=== PATIENT | male | born 1950 | race Caucasian/White ===

== ENCOUNTER 2023-07-07 10:24 | Inpatient (IN) | payer OTHER ==
[2023-07-07 11:40] LABS: #Eosinphils 0.4 thou/uL (0.0-0.7); #Monocytes 0.8 thou/uL (0.11-0.59); #Neutrophils 6.9 thou/uL (1.40-6.50); %Basophils 0.5 % (0.0-1.0); %Eosinophils 4.3 % (0.0-10.0); %Lymphocytes 3.3 % (21.0-51.0); %Monocytes 9.4 % (0.0-10.0); %Neutrophils 81.5 % (42.0-75.0); Hematocrit 42.2 % (42.0-52.0); Mean Corpuscular HGB CONC 33.2 g/dL (32.0-36.0); Mean Corpuscular Hemoglobin 33.1 pg (27.0-31.0); Mean Corpuscular Volume 99.8 fl (78.0-98.0); Mean Platelet Volume 11.6 fL (7.4-10.4); RBC Distribution Width 13.3 % (11.5-14.5); Red Blood Cell (RBC) Count 4.23 mill/uL (4.70-6.10); White Blood Cell (WBC) Count 8.4 10x3/uL (4.8-10.8)
[2023-07-07 11:41] LABS: Platelet Count 79 10x3/uL (130-400)
[2023-07-07 12:08] LABS: ALT (SGPT) 23 U/L (8-55); AST (SGOT) 23 U/L (5-34); Albumin 4.1 g/dL (3.4-4.8); Alkaline Phosphatase 107 U/L (40-110); Anion Gap 11 mmol/L (10-20); BUN (Urea Nitrogen) 20 mg/dL (8.4-25.7); Bilirubin, Total 0.5 mg/dL (0.2-1.2); Calc. Creatinine Clearance 0 mL/min (70-130); Carbon Dioxide 25 mmol/L (23-31); Chloride 106 mmol/L (98-107); Estimated GFR 68; Globulin 2.3 g/dL (2.4-3.5); Glucose 108 mg/dL (83-110); Lipase 23 U/L (8-78); Potassium 4.4 mmol/L (3.5-5.1); Protein, Total 6.4 g/dL (5.8-8.1); Sodium 138 mmol/L (136-145)
[2023-07-07 12:12] LABS: Troponin I 0.503 ng/mL (< 0.028)
[2023-07-07] MEDS ORDERED: Ketorolac Tromethamine 30 MG/ML VIAL ONE (12:18)
[2023-07-07] MEDS ORDERED: Aspirin Chewable 81 MG TAB ONE (12:18)
[2023-07-07] MEDS ORDERED: Ondansetron ODT 4 MG TAB PO PRN (14:18)
[2023-07-07] MEDS ORDERED: Acetaminophen 650 MG Suppository PR PRN (14:18)
[2023-07-07] MEDS ORDERED: Ondansetron PF 4 MG/2 ML Vial IVP PRN (14:18)
[2023-07-07] MEDS ORDERED: Communication Order-Pharmacy FS PRN (14:29)
[2023-07-07 14:45] VITALS: BMI 28.8
[2023-07-07 14:51] LABS: Hematocrit 39.4 % (42.0-52.0)
[2023-07-07 14:54] LABS: Platelet Count 75 10x3/uL (130-400)
[2023-07-07 15:08] LABS: Troponin I 0.522 ng/mL (< 0.028)
[2023-07-07 18:34] LABS: Critical Call Chem Troponin I RESULT DECREASING; Troponin I 0.407 ng/mL (< 0.028)
[2023-07-07] MEDS ORDERED: Lidocaine 4% Patch TD SCH (23:59)
[2023-07-08] MEDS ORDERED: Lidocaine 4% Patch TD SCH (01:30)
[2023-07-08 04:18] LABS: #Eosinphils 0.5 thou/uL (0.0-0.7); #Monocytes 0.7 thou/uL (0.11-0.59); #Neutrophils 5.2 thou/uL (1.40-6.50); %Basophils 0.6 % (0.0-1.0); %Eosinophils 7.4 % (0.0-10.0); %Lymphocytes 4.3 % (21.0-51.0); %Monocytes 10.5 % (0.0-10.0); %Neutrophils 76.5 % (42.0-75.0); Hematocrit 37.7 % (42.0-52.0); Hemoglobin 12.6 g/dL (14.0-18.0); Mean Corpuscular HGB CONC 33.4 g/dL (32.0-36.0); Mean Corpuscular Hemoglobin 33.4 pg (27.0-31.0); Mean Platelet Volume 10.9 fL (7.4-10.4); RBC Distribution Width 13.2 % (11.5-14.5); Red Blood Cell (RBC) Count 3.77 mill/uL (4.70-6.10); White Blood Cell (WBC) Count 6.7 10x3/uL (4.8-10.8)
[2023-07-08 04:28] LABS: Platelet Count 84 10x3/uL (130-400)
[2023-07-08 04:40] LABS: Anion Gap 15 mmol/L (10-20); BUN (Urea Nitrogen) 21 mg/dL (8.4-25.7); Calc. Creatinine Clearance 91 mL/min (70-130); Calcium 8.1 mg/dL (7.8-10.44); Carbon Dioxide 22 mmol/L (23-31); Chloride 108 mmol/L (98-107); Estimated GFR 77; Glucose 95 mg/dL (83-110); Potassium 4.7 mmol/L (3.5-5.1); Sodium 140 mmol/L (136-145)
[2023-07-08] MEDS ORDERED: OSIMERTINIB MESYLATE 80 MG PO SCH (09:00)
[2023-07-08] MEDS ORDERED: Transdermal Patch Removal TOP SCH ×2 (12:00→13:30)
[2023-07-09] MEDS: Acetaminophen 325 MG TAB PO PRN ×2 (03:33→16:10)
[2023-07-09 04:27] LABS: #Eosinphils 0.5 thou/uL (0.0-0.7); #Monocytes 0.7 thou/uL (0.11-0.59); #Neutrophils 5.1 thou/uL (1.40-6.50); %Basophils 0.5 % (0.0-1.0); %Eosinophils 6.8 % (0.0-10.0); %Lymphocytes 3.9 % (21.0-51.0); %Monocytes 10.4 % (0.0-10.0); %Neutrophils 77.5 % (42.0-75.0); Hematocrit 38.3 % (42.0-52.0); Hemoglobin 12.8 g/dL (14.0-18.0); Mean Corpuscular HGB CONC 33.4 g/dL (32.0-36.0); Mean Corpuscular Hemoglobin 33.1 pg (27.0-31.0); Mean Platelet Volume 11.2 fL (7.4-10.4); Platelet Count 99 10x3/uL (130-400); RBC Distribution Width 12.9 % (11.5-14.5); Red Blood Cell (RBC) Count 3.87 mill/uL (4.70-6.10); White Blood Cell (WBC) Count 6.6 10x3/uL (4.8-10.8)
[2023-07-09 04:54] LABS: Anion Gap 13 mmol/L (10-20); BUN (Urea Nitrogen) 16 mg/dL (8.4-25.7); Calc. Creatinine Clearance 102 mL/min (70-130); Calcium 8.5 mg/dL (7.8-10.44); Carbon Dioxide 23 mmol/L (23-31); Chloride 105 mmol/L (98-107); Estimated GFR 88; Glucose 90 mg/dL (83-110); Sodium 137 mmol/L (136-145)
[2023-07-10 04:26] LABS: #Eosinphils 0.4 thou/uL (0.0-0.7); #Monocytes 0.8 thou/uL (0.11-0.59); #Neutrophils 5.6 thou/uL (1.40-6.50); %Basophils 0.6 % (0.0-1.0); %Eosinophils 6.1 % (0.0-10.0); %Lymphocytes 3.4 % (21.0-51.0); %Monocytes 11.3 % (0.0-10.0); %Neutrophils 77.4 % (42.0-75.0); Hematocrit 38.4 % (42.0-52.0); Hemoglobin 12.9 g/dL (14.0-18.0); Mean Corpuscular HGB CONC 33.6 g/dL (32.0-36.0); Mean Corpuscular Hemoglobin 33.2 pg (27.0-31.0); Mean Corpuscular Volume 98.7 fl (78.0-98.0); Mean Platelet Volume 10.9 fL (7.4-10.4); Platelet Count 113 10x3/uL (130-400); RBC Distribution Width 13.1 % (11.5-14.5); Red Blood Cell (RBC) Count 3.89 mill/uL (4.70-6.10); White Blood Cell (WBC) Count 7.3 10x3/uL (4.8-10.8)
[2023-07-10 04:50] LABS: Anion Gap 14 mmol/L (10-20); BUN (Urea Nitrogen) 18 mg/dL (8.4-25.7); Calc. Creatinine Clearance 94 mL/min (70-130); Calcium 8.4 mg/dL (7.8-10.44); Carbon Dioxide 23 mmol/L (23-31); Chloride 104 mmol/L (98-107); Estimated GFR 81; Glucose 100 mg/dL (83-110); Potassium 4.3 mmol/L (3.5-5.1); Sodium 137 mmol/L (136-145)
[2023-07-10] MEDS ORDERED: Bisacodyl 10 MG SUPP PR PRN (13:44)
[2023-07-10] MEDS ORDERED: Docusate 100 MG CAP PO SCH (14:00)
[2023-07-10] MEDS ORDERED: Polyethylene Glycol 3350 17 GM Packet PO SCH (14:00)
[2023-07-10] MEDS: Docusate 100 MG CAP PO SCH (21:22)
[2023-07-11 04:39] LABS: #Eosinphils 0.4 thou/uL (0.0-0.7); #Monocytes 0.8 thou/uL (0.11-0.59); %Basophils 0.4 % (0.0-1.0); %Eosinophils 5.5 % (0.0-10.0); %Lymphocytes 3.3 % (21.0-51.0); %Monocytes 10.4 % (0.0-10.0); %Neutrophils 79.1 % (42.0-75.0); Hematocrit 40.1 % (42.0-52.0); Hemoglobin 13.4 g/dL (14.0-18.0); Mean Corpuscular HGB CONC 33.4 g/dL (32.0-36.0); Mean Corpuscular Hemoglobin 32.8 pg (27.0-31.0); Mean Platelet Volume 10.9 fL (7.4-10.4); Platelet Count 120 10x3/uL (130-400); Red Blood Cell (RBC) Count 4.09 mill/uL (4.70-6.10); White Blood Cell (WBC) Count 7.6 10x3/uL (4.8-10.8)
[2023-07-11 05:15] LABS: Anion Gap 14 mmol/L (10-20); BUN (Urea Nitrogen) 16 mg/dL (8.4-25.7); Calc. Creatinine Clearance 93 mL/min (70-130); Calcium 8.6 mg/dL (7.8-10.44); Carbon Dioxide 24 mmol/L (23-31); Chloride 104 mmol/L (98-107); Estimated GFR 79; Glucose 99 mg/dL (83-110); Potassium 4.5 mmol/L (3.5-5.1); Sodium 137 mmol/L (136-145)
[2023-07-11 07:43] VITALS: BP 135/65; TEMP 98
[2023-07-11] MEDS ORDERED: Polyethylene Glycol 3350 17 GM Packet PO SCH (09:00)
[2023-07-11] MEDS: Docusate 100 MG CAP PO SCH (10:03)
== END 2023-07-11 12:28 | disposition home or self-care (01) | DRG 175 ==
LOC: ERS 10:24 → ERHOLD 13:58 → 2NO 19:35
PROVIDERS: ADMIT Hospitalist; ATTEND Internal Medicine
DX: I26.99 Other pulmonary embolism without acute cor pulmonale (principal); I21.A1 Myocardial infarction type 2; C34.92 Malignant neoplasm of unspecified part of left bronchus or lung; J91.0 Malignant pleural effusion; Z98.890 Other specified postprocedural states; Z79.01 Long term (current) use of anticoagulants; Z79.899 Other long term (current) drug therapy; D69.6 Thrombocytopenia, unspecified; K59.00 Constipation, unspecified
CPT/HCPCS: 36415; 36416; 71275; 74177; 80048; 80053; 83690; 83880; 84484; 85025; 93005; 93306; 93970; J1642; J1650; J1885

== ENCOUNTER 2023-07-16 09:15 | Inpatient (IN) | payer OTHER ==
[2023-07-16 10:00] LABS: #Basophils 0.1 thou/uL (0.0-0.2); #Eosinphils 0.7 thou/uL (0.0-0.7); #Monocytes 0.8 thou/uL (0.11-0.59); #Neutrophils 6.9 thou/uL (1.40-6.50); %Basophils 0.8 % (0.0-1.0); %Eosinophils 7.4 % (0.0-10.0); %Monocytes 8.8 % (0.0-10.0); %Neutrophils 78.4 % (42.0-75.0); Hematocrit 39.8 % (42.0-52.0); Hemoglobin 13.2 g/dL (14.0-18.0); Mean Corpuscular HGB CONC 33.2 g/dL (32.0-36.0); Mean Corpuscular Volume 99.5 fl (78.0-98.0); Mean Platelet Volume 10.9 fL (7.4-10.4); Platelet Count 153 10x3/uL (130-400); RBC Distribution Width 12.9 % (11.5-14.5); White Blood Cell (WBC) Count 8.7 10x3/uL (4.8-10.8)
[2023-07-16] MEDS ORDERED: Ondansetron PF 4 MG/2 ML Vial ONE (10:24)
[2023-07-16] MEDS ORDERED: Morphine 4 MG/ML VIAL ONE (10:24)
[2023-07-16 10:34] LABS: ALT (SGPT) 108 U/L (8-55); AST (SGOT) 61 U/L (5-34); Albumin 3.5 g/dL (3.4-4.8); Alkaline Phosphatase 112 U/L (40-110); Anion Gap 16 mmol/L (10-20); BUN (Urea Nitrogen) 19 mg/dL (8.4-25.7); Bilirubin, Total 0.6 mg/dL (0.2-1.2); Calc. Creatinine Clearance 0 mL/min (70-130); Calcium 8.8 mg/dL (7.8-10.44); Carbon Dioxide 24 mmol/L (23-31); Chloride 100 mmol/L (98-107); Estimated GFR 73; Globulin 2.7 g/dL (2.4-3.5); Glucose 110 mg/dL (83-110); Lipase 41 U/L (8-78); Potassium 4.1 mmol/L (3.5-5.1); Protein, Total 6.2 g/dL (5.8-8.1); Sodium 136 mmol/L (136-145)
[2023-07-16 10:48] LABS: Troponin I 0.013 ng/mL (< 0.028)
[2023-07-16] MEDS ORDERED: Iopamidol-370 76% 500 ML MDV (1 ML CHARGE) ONE (11:07)
[2023-07-16 14:41] LABS: Bacteria/HPF None Seen HPF (None Seen); Bilirubin Negative (Negative); Blood, Urine Negative (Negative); CAUTI Indications for Culture Pelvic or flank pain; Clarity Clear (Clear); Glucose, Urine (Dipstick) Normal (Negative); Ketone, Urine 20 mg/dL (Negative); Leukocyte Negative Leu/uL (Negative); Nitrite Negative (Negative); Protein, Urine (Dipstick) 30 mg/dL (Neg-Trace); RBC/HPF 0-3 HPF (0-3); Specific Gravity, Urine 1.031 (1.002-1.036); Squamous Epithelial None Seen HPF (0-3); Urobilinogen Normal mg/dL (Less than 2); WBC/HPF 0-3 HPF (0-3); pH, Urine 5.5 (5.0-9.0)
[2023-07-16 14:43] LABS: Urine Culture Reflex No No
[2023-07-16 17:32] LABS: INR-International Normal Ratio 1.1; Prothrombin Time 14.9 sec (12.0-14.7)
[2023-07-16 17:33] LABS: PTT 37.6 sec (22.9-36.1)
[2023-07-16] MEDS ORDERED: Ondansetron PF 4 MG/2 ML Vial IVP PRN (17:40)
[2023-07-16] MEDS ORDERED: Ondansetron ODT 4 MG TAB PO PRN (17:40)
[2023-07-16 19:31] VITALS: BMI 27.8
[2023-07-17] MEDS: Acetaminophen 325 MG TAB PO PRN ×2 (02:24→08:45)
[2023-07-17 05:21] LABS: #Basophils 0.1 thou/uL (0.0-0.2); #Eosinphils 0.9 thou/uL (0.0-0.7); #Monocytes 0.8 thou/uL (0.11-0.59); #Neutrophils 6.5 thou/uL (1.40-6.50); %Basophils 0.7 % (0.0-1.0); %Eosinophils 10.6 % (0.0-10.0); %Monocytes 9.5 % (0.0-10.0); %Neutrophils 75.9 % (42.0-75.0); Hematocrit 35.8 % (42.0-52.0); Hemoglobin 11.7 g/dL (14.0-18.0); Mean Corpuscular HGB CONC 32.7 g/dL (32.0-36.0); Mean Corpuscular Hemoglobin 32.4 pg (27.0-31.0); Mean Corpuscular Volume 99.2 fl (78.0-98.0); Mean Platelet Volume 10.7 fL (7.4-10.4); Platelet Count 142 10x3/uL (130-400); RBC Distribution Width 13.1 % (11.5-14.5); Red Blood Cell (RBC) Count 3.61 mill/uL (4.70-6.10); White Blood Cell (WBC) Count 8.6 10x3/uL (4.8-10.8)
[2023-07-17 05:51] LABS: Anion Gap 11 mmol/L (10-20); BUN (Urea Nitrogen) 18 mg/dL (8.4-25.7); Calc. Creatinine Clearance 92 mL/min (70-130); Calcium 8.8 mg/dL (7.8-10.44); Carbon Dioxide 27 mmol/L (23-31); Chloride 101 mmol/L (98-107); Estimated GFR 82; Glucose 101 mg/dL (83-110); Potassium 4.3 mmol/L (3.5-5.1); Sodium 135 mmol/L (136-145)
[2023-07-17] MEDS ORDERED: traMADol HCl 50 MG TAB PO PRN (10:00)
[2023-07-17] MEDS ORDERED: Morphine 2 MG/ML VIAL SLOW IVP PRN (14:59)
[2023-07-17] MEDS ORDERED: HYDROcodone/Acetaminophen 5/325 mg Tablet PO PRN (14:59)
[2023-07-17] MEDS ORDERED: Docusate 100 MG CAP PO PRN (15:01)
[2023-07-17] MEDS ORDERED: Polyethylene Glycol 3350 17 GM Packet PO PRN (15:02)
[2023-07-17 16:08] LABS: Fluid, pH - Pleural Fld Greater than 7.500 (7.60 - 7.66)
[2023-07-17 16:13] LABS: RBC Count-Automated (BF) Greater than 890000 /cu.mm; WBC/Nucleated-Auto (BF) 2295 /cu.mm
[2023-07-17 16:15] LABS: BF Color Red; Body Fluid Source Pleural Fluid; Clarity Cloudy/Turbid (Clear); Tube # EDTA
[2023-07-17 16:23] LABS: BF Segmented Neutrophils 30 %; Cell Count Non Hematic 5 %; Eosinophils 50 %; Lymphocytes 13 %
[2023-07-17 16:32] LABS: Pleural Fluid, Amylase Less than 30 U/L (Not Available); Pleural Fluid, Glucose 80 mg/dL; Pleural Fluid, LDH 784 U/L (Not Available); Pleural Fluid, Protein 3.9 g/dL
[2023-07-18] MEDS: Acetaminophen 325 MG TAB PO PRN ×2 (03:23→12:06)
[2023-07-18 04:42] LABS: #Basophils 0.1 thou/uL (0.0-0.2); #Eosinphils 0.9 thou/uL (0.0-0.7); #Monocytes 0.6 thou/uL (0.11-0.59); #Neutrophils 5.7 thou/uL (1.40-6.50); %Basophils 0.7 % (0.0-1.0); %Eosinophils 11.5 % (0.0-10.0); %Lymphocytes 2.8 % (21.0-51.0); %Monocytes 7.7 % (0.0-10.0); %Neutrophils 75.7 % (42.0-75.0); Hematocrit 34.3 % (42.0-52.0); Hemoglobin 11.1 g/dL (14.0-18.0); Mean Corpuscular HGB CONC 32.4 g/dL (32.0-36.0); Mean Corpuscular Hemoglobin 32.1 pg (27.0-31.0); Mean Corpuscular Volume 99.1 fl (78.0-98.0); Mean Platelet Volume 10.9 fL (7.4-10.4); Platelet Count 142 10x3/uL (130-400); RBC Distribution Width 13.2 % (11.5-14.5); Red Blood Cell (RBC) Count 3.46 mill/uL (4.70-6.10); White Blood Cell (WBC) Count 7.6 10x3/uL (4.8-10.8)
[2023-07-18 05:08] LABS: Anion Gap 15 mmol/L (10-20); BUN (Urea Nitrogen) 15 mg/dL (8.4-25.7); Calc. Creatinine Clearance 92 mL/min (70-130); Calcium 8.1 mg/dL (7.8-10.44); Carbon Dioxide 22 mmol/L (23-31); Chloride 102 mmol/L (98-107); Estimated GFR 82; Glucose 142 mg/dL (83-110); Potassium 4.4 mmol/L (3.5-5.1); Sodium 135 mmol/L (136-145)
[2023-07-18 07:43] VITALS: BP 119/72; TEMP 97.5
== END 2023-07-18 16:00 | disposition home or self-care (01) | DRG 180 ==
LOC: ERS 09:15 → MSONC 17:48 → OBSVTOIN 07-17 14:09
PROVIDERS: ADMIT Internal Medicine; ATTEND Internal Medicine
PROC: 0W9B3ZX Drainage of Left Pleural Cavity, Percutaneous Approach, Diagnostic (ICD-10-PCS; principal; 2023-07-17)
PROC: 0W9B3ZZ Drainage of Left Pleural Cavity, Percutaneous Approach (ICD-10-PCS; 2023-07-17)
DX: C34.90 Malignant neoplasm of unspecified part of unspecified bronchus or lung (principal); I26.99 Other pulmonary embolism without acute cor pulmonale; J96.21 Acute and chronic respiratory failure with hypoxia; J91.0 Malignant pleural effusion; Z79.899 Other long term (current) drug therapy; Z79.01 Long term (current) use of anticoagulants; Z86.711 Personal history of pulmonary embolism
CPT/HCPCS: 36415; 71045; 71260; 74176; 80048; 80053; 81001; 82150; 82945; 83615; 83690; 83880; 84157; 84484; 85025; 85060; 85610; 85730; 87070; 87102; 87116; 87205; 87206; 88112; 88305; 88341; 88342; 89051; 93005; 96372; 96374; 96375; G0378; J1650; J2270; J2405; Q9967

== ENCOUNTER 2023-07-20 11:07 | Emergency (ER) | payer OTHER ==
[~2023-07-20 11:07] MED LIST: Iopamidol-370 76% 500 ML MDV (1 ML CHARGE) ONE
[2023-07-20] MEDS ORDERED: Dicyclomine 20 MG/2 ML VIAL ONE (13:13)
[2023-07-20] MEDS ORDERED: Ondansetron PF 4 MG/2 ML Vial ONE (13:14)
[2023-07-20 13:19] LABS: #Eosinphils 0.5 thou/uL (0.0-0.7); #Monocytes 0.5 thou/uL (0.11-0.59); #Neutrophils 7.4 thou/uL (1.40-6.50); %Basophils 0.5 % (0.0-1.0); %Eosinophils 5.6 % (0.0-10.0); %Lymphocytes 1.6 % (21.0-51.0); %Monocytes 6.2 % (0.0-10.0); %Neutrophils 84.6 % (42.0-75.0); Hematocrit 38.8 % (42.0-52.0); Hemoglobin 12.5 g/dL (14.0-18.0); Mean Corpuscular HGB CONC 32.2 g/dL (32.0-36.0); Mean Corpuscular Hemoglobin 32.6 pg (27.0-31.0); Mean Platelet Volume 10.9 fL (7.4-10.4); Platelet Count 160 10x3/uL (130-400); RBC Distribution Width 13.3 % (11.5-14.5); Red Blood Cell (RBC) Count 3.84 mill/uL (4.70-6.10); White Blood Cell (WBC) Count 8.8 10x3/uL (4.8-10.8)
[2023-07-20 13:45] LABS: Troponin I Less than 0.010 ng/mL (< 0.028)
[2023-07-20 13:51] LABS: ALT (SGPT) 107 U/L (8-55); AST (SGOT) 55 U/L (5-34); Albumin 3.4 g/dL (3.4-4.8); Alkaline Phosphatase 105 U/L (40-110); Anion Gap 13 mmol/L (10-20); BUN (Urea Nitrogen) 14 mg/dL (8.4-25.7); Bilirubin, Total 0.4 mg/dL (0.2-1.2); Calc. Creatinine Clearance 0 mL/min (70-130); Calcium 8.6 mg/dL (7.8-10.44); Carbon Dioxide 24 mmol/L (23-31); Chloride 104 mmol/L (98-107); Estimated GFR 79; Globulin 2.4 g/dL (2.4-3.5); Glucose 112 mg/dL (83-110); Lipase 61 U/L (8-78); Potassium 4.2 mmol/L (3.5-5.1); Protein, Total 5.8 g/dL (5.8-8.1); Sodium 137 mmol/L (136-145)
[2023-07-20] MEDS ORDERED: Ketorolac Tromethamine 30 MG/ML VIAL ONE (16:09)
== END 2023-07-20 17:53 | disposition home or self-care (01) ==
LOC: ERS 11:07
DX: J90 Pleural effusion, not elsewhere classified (principal); R59.1 Generalized enlarged lymph nodes; K59.00 Constipation, unspecified; R74.01 Elevation of levels of liver transaminase levels
CPT/HCPCS: 71045; 74177; 80053; 83605; 83690; 84484; 85025; 93005; 94760; 96361; 96372; 96374; 96375; J1885; J2405; Q9967